=== PATIENT | female | born 2005 | race Caucasian/White ===

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

== ENCOUNTER → 2025-01-14 | Outpatient (CLI) | payer BC ==
--- NOTE | 2025-01-14 12:54 | HMCIMG ---
MR KNEE LEFT WO HISTORY: Left lower leg injury COMPARISON: None TECHNIQUE: MRI of the left knee was performed utilizing multiple pulse sequences in axial, coronal and sagittal planes. Patient was not given contrast through intravenous route. FINDINGS: No abnormal signal intensity is seen of the visualized bony structure. There is anterior cruciate ligament tear. Posterior cruciate ligament is intact. The medial and lateral collateral ligaments are also intact. Quadriceps tendon and patellar tendon are within normal limits. There is intrasubstance tear involving the medial and lateral menisci. There is medial meniscal tear involving posterior horn with inferior articular extension. No evidence of Nash's cyst is seen. Tiny joint effusion is seen. IMPRESSION: 1. Anterior cruciate ligament tear. Medial meniscal tear.
== END | disposition home or self-care (01) ==
LOC: EDSEX 11:03 → RAH 11:03
PROVIDERS: ATTEND Family Medicine
DX: S83.512A Sprain of anterior cruciate ligament of left knee, initial encounter (principal); S83.242A Other tear of medial meniscus, current injury, left knee, initial encounter; S83.282A Other tear of lateral meniscus, current injury, left knee, initial encounter; S89.92XA Unspecified injury of left lower leg, initial encounter; M25.462 Effusion, left knee; M25.562 Pain in left knee; X58.XXXA Exposure to other specified factors, initial encounter; Y93.89 Activity, other specified; Y92.89 Other specified places as the place of occurrence of the external cause; Y99.8 Other external cause status
CPT/HCPCS: 73721